=== PATIENT | female | born 1965 | race American Indian/Alaskan Native ===

== ENCOUNTER 2017-04-12 08:17 | Emergency (ER) | payer MEDICAID ==
[2017-04-12 08:37] VITALS: BP 154/90
[2017-04-12] MEDS ORDERED: MORPHINE IM ONE (13:20)
[2017-04-12] MEDS ORDERED: ZOFRAN ODT PO ONE (13:20)
[2017-04-12 13:59] LABS: Basophils % (Auto) 0.8 % (0.0-1.8); Eosinophils % (Auto) 1.3 % (0.0-4.3); Hematocrit 41.7 % (30.3-42.9); Hemoglobin 13.1 gm/dl (10.1-14.3); Mean Corpuscular HGB Conc 31 % (30-34); Mean Corpuscular Hemoglobin 27 pg (28-32); Mean Corpuscular Volume 85 fl (79-97); Platelet Count 200 K/mm3 (140-440); Red Blood Count 4.93 M/mm3 (3.65-5.03); Red Cell Distribution Width 16.9 % (13.2-15.2); White Blood Count 7.2 K/mm3 (4.5-11.0)
[2017-04-12 14:06] LABS: INR 0.98 (0.87-1.13)
[2017-04-12 14:07] LABS: Partial Thromboplastin Time 42.8 Sec. (24.2-36.6)
[2017-04-12 14:21] LABS: Alanine Aminotransferase 18 units/L (7-56); Albumin 3.9 g/dL (3.9-5); Albumin/Globulin Ratio 1.3 %; Alkaline Phosphatase 134 units/L (35-129); Anion Gap 17 mmol/L; BUN/Creatinine Ratio 7.77; Blood Urea Nitrogen 7 mg/dL (7-17); Calcium 9.3 mg/dL (8.4-10.2); Carbon Dioxide 29 mmol/L (22-30); Chloride 100.2 mmol/L (98-107); Glucose 94 mg/dL (65-100); Sodium 142 mmol/L (137-145); Total Protein 6.8 g/dL (6.3-8.2)
--- NOTE | 2017-04-12 14:47 | Cat Scan Report ---
CRANIAL CT SCAN: History: Headache, nausea, and vomiting. Serial contiguous axial images were obtained through the cranium. Intravenous contrast material was not administered. The ventricles are normal in size and appearance. There is no mass effect or midline shift. No areas of abnormally increased or decreased attenuation are seen. No mass lesion is seen. The mastoid air cells and visualized portions of the sinuses are normal. IMPRESSION: Cranial CT scan within normal limits.
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
--- NOTE | 2017-04-12 15:32 | XRay Report ---
THORACIC SPINE: History: Back pain The bones are normally mineralized with well preserved vertebral height, alignment and interspace distances. No paraspinal soft tissue widening is noted. IMPRESSION: Normal study.
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
--- NOTE | 2017-04-12 15:39 | XRay Report ---
RIGHT ANKLE, 3 views: History: Pain and swelling. There is been previous fusion of the tibiotalar joint and hindfoot. Please correlate with history. 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 No displaced fracture or bony destruction is identified. IMPRESSION: Chronic findings as described. No acute injury is appreciated.
[2017-04-12 15:59] LABS: Bilirubin,Urine NEG (Negative)
[2017-04-12 16:00] LABS: Blood,Urine SM (Negative); Ketones,Urine NEG (Negative); Leukocyte Esterase,Urine LG (Negative); Mucus,Urine FEW /HPF; Nitrite,Urine NEG (Negative); Protein,Urine <15 mg/dL mg/dL (Negative); Urobilinogen,Urine < 2.0 mg/dL (<2.0)
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
[2017-04-12] MEDS ORDERED: NORCO 5/325 PO ONE (16:19)
== END 2017-04-12 16:57 | disposition home or self-care (01) ==
LOC: ED 08:17
DX: S16.1XXA Strain of muscle, fascia and tendon at neck level, initial encounter (principal); G44.319 Acute post-traumatic headache, not intractable; M25.571 Pain in right ankle and joints of right foot; N39.0 Urinary tract infection, site not specified; I10 Essential (primary) hypertension; J45.909 Unspecified asthma, uncomplicated; Z86.718 Personal history of other venous thrombosis and embolism; Z79.01 Long term (current) use of anticoagulants; K21.9 Gastro-esophageal reflux disease without esophagitis; Z90.49 Acquired absence of other specified parts of digestive tract; F17.210 Nicotine dependence, cigarettes, uncomplicated; M54.6 Pain in thoracic spine; V43.52XA Car driver injured in collision with other type car in traffic accident, initial encounter; Y93.89 Activity, other specified; Y92.410 Unspecified street and highway as the place of occurrence of the external cause; Y99.8 Other external cause status; R11.11 Vomiting without nausea
CPT/HCPCS: 36415; 70450; 72070; 72125; 73610; 74176; 80053; 81001; 85025; 85610; 85730; 96372; 99284; J2270; Q0162

== ENCOUNTER 2017-04-27 06:27 | Day surgery (SDC) | payer MEDICAID ==
[2017-04-27] MEDS ORDERED: DIPRIVAN 10 MG/ML IV ONE ×3 (07:07)
[2017-04-27] MEDS ORDERED: WATER FOR IRRIG STERILE IR ONE (07:10)
[2017-04-27] MEDS ORDERED: WATER FOR IRRIG STERILE ONE (07:11)
--- NOTE | 2017-04-27 07:50 | Anesthesia Consultation ---
Anesthesia Consult and Med Hx Date of service: 04/27/17 - Airway Anesthetic Teeth Evaluation: Poor ROM Head & Neck: Adequate Mental/Hyoid Distance: Adequate Mallampati Class: Class IV Intubation Access Assessment: Possibly Difficult - Pulmonary Exam CTA: Yes - Cardiac Exam Cardiac Exam: RRR - Pre-Operative Health Status ASA Pre-Surgery Classification: ASA3 Proposed Anesthetic Plan: General - Pulmonary Hx Smoking: Yes Hx Asthma: Yes SOB: Yes (w/ exertion; < 4 METS) Hx Sleep Apnea: Yes - Cardiovascular System Hx Hypertension: Yes Hx Coronary Artery Disease: No Hx Heart Attack/AMI: No Hx Peripheral Vascular Disease: No - Central Nervous System Hx Seizures: No CVA: No Hx Psychiatric Problems: Yes (Anxiety/ Depression) - Gastrointestinal Hx Gastroesophageal Reflux Disease: Yes (Mild) - Endocrine Hx Renal Disease: No Hx Insulin Dependent Diabetes: No Hx Non-Insulin Dependent Diabetes: No Hx Thyroid Disease: No - Hematic Hx Anemia: Yes (blood transfusion 8 years ago) - Other Systems Hx Alcohol Use: No Hx Substance Use: No Hx Cancer: No Hx Obesity: Yes (BMI=37) - Additional Comments Anesthesia Medical History Comments: Denies previous anesthesia complications. Dentition is exceptionally poor, but no loose teeth.
--- NOTE | 2017-04-27 07:51 | Anesthesia Day of Surgery ---
Anesthesia Day of Surgery - Day of Surgery Patient Examined: Yes Patient H&P Reviewed: Yes Patient is NPO: Yes
[2017-04-27] MEDS ORDERED: NACL 0.9% 1000 ML 1,000 ML IV SCH (08:00)
--- NOTE | 2017-04-27 08:52 | Post Operative Note ---
Pre-op diagnosis: dyspepsia, screening colonoscopy Post-op diagnosis: other (gastritis; poor prep in colon) Findings: EGD: mild gastritis, otherwise no significant findings. Bx's obtained to r/o HP. Colonoscopy: poor prep, procedure aborted Procedure: EGD with biopsies, colonoscopy Anesthesia: MAC Surgeon: ONUR MEJIA Estimated blood loss: minimal Pathology: list (Jar A - random gastric biopsies) Specimen disposition: to lab Condition: stable Disposition: same day
[2017-04-27 09:30] VITALS: BP 110/59
--- NOTE | 2017-04-27 10:13 | Operative Report ---
PROCEDURE: EGD. PREOPERATIVE DIAGNOSES: Dyspepsia, bloating. POSTOPERATIVE DIAGNOSIS: Mild gastritis, otherwise no significant findings. COMPLICATIONS: No immediate complications. ANESTHESIA: Monitored anesthesia care. ESTIMATED BLOOD LOSS: Minimal. DESCRIPTION OF PROCEDURE: After consent was obtained, the patient was placed in left lateral decubitus position. Standard upper Fujinon scope was advanced with direct vision through the mouth into the second portion of the duodenum without difficulty. The patient tolerated the procedure well. The views of mucosa were fair. The patient's vital signs were monitored throughout the procedure. FINDINGS: 1. The Z line was irregular at 40 cm from the incisors, otherwise the esophagus appeared normal. 2. There is mild erythematous mucosa in the gastric body and antrum suggestive of gastritis. Random gastric biopsies were obtained to rule out H. pylori. 3. Duodenum appeared normal. IMPRESSION: 1. Gastritis. Random gastric biopsies were obtained. 2. Otherwise, no significant findings on esophagogastroduodenoscopy. RECOMMENDATIONS: 1. Followup pathology. 2. Avoid NSAIDs. 3. Continue PPI daily. 4. Proceed with colonoscopy. [facility]# [id number] VIDAL/NTS
--- NOTE | 2017-04-27 10:15 | Operative Report ---
PROCEDURE: Colonoscopy. PREOPERATIVE DIAGNOSIS: Screening colonoscopy. POSTOPERATIVE DIAGNOSIS: Poor prep, procedure aborted at suspected transverse colon. COMPLICATIONS: No immediate complications. ANESTHESIA: Monitored anesthesia care. ESTIMATED BLOOD LOSS: None. PROCEDURE: After consent was obtained, the patient was placed in left lateral decubitus position. The Fujinon colonoscope was advanced with direct vision through the anus and advanced to the transverse colon. Procedure was aborted due to poor quality of prep and inadequate visualization of the mucosa. The patient tolerated the procedure well. The quality of the prep was poor. FINDINGS: Semi-solid stool throughout the visualized portion of the colon. The procedure was aborted at likely the transverse colon. IMPRESSION: Poor prep, unable to complete colonoscopy. RECOMMENDATIONS: 1. Reschedule colonoscopy with 2-day prep. 2. Follow up in GI Clinic as previously scheduled. 3. We will need repeat colonoscopy within 6 months. [facility]# [id number] VIDAL/NTS
== END 2017-04-27 06:28 | disposition home or self-care (01) ==
LOC: GIO 06:27
PROVIDERS: ATTEND Internal Medicine Gastroenterology
DX: Z12.11 Encounter for screening for malignant neoplasm of colon (principal); K29.50 Unspecified chronic gastritis without bleeding; K22.8 Other specified diseases of esophagus; J45.909 Unspecified asthma, uncomplicated; K21.9 Gastro-esophageal reflux disease without esophagitis; D64.9 Anemia, unspecified; I10 Essential (primary) hypertension; G43.909 Migraine, unspecified, not intractable, without status migrainosus; F41.9 Anxiety disorder, unspecified; F32.9 Major depressive disorder, single episode, unspecified; E66.9 Obesity, unspecified; Z68.37 Body mass index [BMI] 37.0-37.9, adult; Z87.891 Personal history of nicotine dependence; Z98.890 Other specified postprocedural states; Z96.60 Presence of unspecified orthopedic joint implant; Z88.0 Allergy status to penicillin; Z91.041 Radiographic dye allergy status; Z83.79 Family history of other diseases of the digestive system; Z82.49 Family history of ischemic heart disease and other diseases of the circulatory system
CPT/HCPCS: 43239; 45378; 88305; 88342; J2704; J7030

== ENCOUNTER 2017-06-09 08:08 | Day surgery (SDC) | payer MEDICAID ==
[~2017-06-09 08:08] MED LIST: ANCEF/STERILE WATER 2 GM/20 ML IV NR; DECADRON ONE; DIPRIVAN 10 MG/ML IV ONE; MORPHINE IV PRN; NACL 0.9% 1000 ML 1,000 ML IV SCH; PEPCID PO NR; PERCOCET 5/325 PO PRN; SUBLIMAZE ONE; VERSED IV NR; XYLOCAINE MPF 2% ONE; ZOFRAN IV PRN; ZOFRAN ONE
--- NOTE | 2017-06-09 08:56 | Anesthesia Consultation ---
Anesthesia Consult and Med Hx Date of service: 06/09/17 - Airway Anesthetic Teeth Evaluation: Good, Poor (loose bottom front right tooth), Chipped (bottom front tooth) ROM Head & Neck: Adequate Mental/Hyoid Distance: Adequate Mallampati Class: Class II Intubation Access Assessment: Probably Good - Pulmonary Exam CTA: Yes - Cardiac Exam Cardiac Exam: RRR - Pre-Operative Health Status ASA Pre-Surgery Classification: ASA3 Proposed Anesthetic Plan: General - Pulmonary Hx Smoking: Yes (CIGS, 1 PACK Q 2 WEEKS, last cig yesterday) Hx Asthma: Yes Hx Sleep Apnea: Yes (DX SLEEP APNEA WITH CPAP USE) - Cardiovascular System Hx Hypertension: Yes (DIAGNOSED 4 YEARS AGO) Hx Coronary Artery Disease: No Hx Heart Attack/AMI: No Hx Peripheral Vascular Disease: No - Central Nervous System Hx Seizures: Yes (when sleep? not on meds) CVA: No Hx Back Pain: Yes Hx Psychiatric Problems: Yes (Anxiety/ Depression) - Gastrointestinal Hx Gastroesophageal Reflux Disease: Yes (Mild) - Endocrine Hx Renal Disease: No Hx Insulin Dependent Diabetes: No Hx Non-Insulin Dependent Diabetes: No Hx Thyroid Disease: No - Hematic Hx Anemia: No (blood transfusion 8 years ago) - Other Systems Hx Alcohol Use: No Hx Substance Use: No Hx Cancer: No Hx Obesity: Yes (BMI=34)
--- NOTE | 2017-06-09 08:56 | Anesthesia Day of Surgery ---
Anesthesia Day of Surgery - Day of Surgery Patient Examined: Yes Patient H&P Reviewed: Yes Patient is NPO: Yes
[2017-06-09] MEDS ORDERED: FLAGYL 500 MG/100 ML 500 MG/100 ML BAG IV NR (09:03)
--- NOTE | 2017-06-09 09:06 | XRay Report ---
Single view abdomen: History: Preop left renal stone. Findings: There is confluent density noted overlying the left kidney probably a single or multiple adjacent calculi. No bowel distention. Stool in colon. Impression: Single calculus or multiple adjacent calculi overlying the left kidney.
[2017-06-09] MEDS ORDERED: PROAIR IH ONE (09:52)
--- NOTE | 2017-06-09 10:05 | Short Stay Summary ---
Short Stay Documentation Date of service: 06/09/17 - History H&P: obtained from office - Allergies and Medications Current Medications: Allergies Penicillins Allergy (Severe, Verified 06/03/17 14:36) Anaphylaxis Iodinated Contrast Media - IV Dye Adverse Reaction (Verified 01/25/16 10:57) Swelling "I SWOLE UP LIKE A BALLOON" Home Medications Medication Instructions Recorded Confirmed Last Taken Type Beclomethasone Dipropionate [Qvar 80 mg INHALATION DAILY 07/07/15 06/03/1704/26 History 80MCG] Verapamil HCl [Verapamil ER] 240 mg PO DAILY 07/07/15 06/03/17 04/27/17 History Albuterol Sulfate [Proventil HFA] 2 puff INHALATION QID 01/09/16 06/03/17 History Lisinopril/Hydrochlorothiazide 1 tab PO DAILY 01/09/16 06/03/17 10/26/16 History [Lisinopril-Hctz 20-25 mg Tab] Ranitidine HCl [Zantac 150 MG TAB] 150 mg PO DAILY 10/26/16 06/03/17 10/26/16 History Acetaminophen/Codeine [Tylenol #3] 1 tab PO Q6H PRN #12 tab 04/12/17 06/03/17 Rx Ibuprofen [Motrin] 600 mg PO Q8H PRN #15 tablet 04/12/17 06/03/17 Unknown Rx methOCARBAMOL [Robaxin TAB] 500 mg PO Q6H PRN #15 tablet 04/12/17 06/03/1704/06 Rx Active Medications Cefazolin Sodium (Ancef/Sterile Water 2 Gm/20 Ml) 2 gm IV PREOP NR Stop: 06/09/17 23:00 Famotidine (Pepcid) 20 mg PO PREOP NR Stop: 06/09/17 21:00 Last Admin: 06/09/17 08:59 Dose: 20 mg Sodium Chloride (Nacl 0.9% 1000 Ml) 1,000 mls @ 75 mls/hr IV DIRECT CHIQUITA Last Admin: 06/09/17 08:59 Dose: 75 mls/hr Midazolam HCl (Versed) 2 mg IV PREOP NR Stop: 06/09/17 23:59 Last Admin: 06/09/17 08:59 Dose: 2 mg Morphine Sulfate (Morphine) 2 mg IV Q10MIN PRN PRN Reason: Pain, Moderate (4-6) Stop: 06/12/17 07:26 - Brief post op/procedure progress note Date of procedure: 06/09/17 Pre-op diagnosis: left renal stones Post-op diagnosis: same Procedure: ESWL - staged Anesthesia: GETA Surgeon: ALBERTINA BARNETT Estimated blood loss: none Pathology: none Condition: stable - Hospital course Hospital course: norco & post op info on chart - Disposition Condition at discharge: Stable Disposition: DC-01 TO HOME OR SELFCARE Short Stay Discharge Plan Follow up with: AL BERRY MD [Primary Care Provider] - 7 Days
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
[2017-06-09] MEDS ORDERED: PROVENTIL IH ONE (10:29)
[2017-06-09] MEDS ORDERED: NACL 0.9% NEBU ONE (10:30)
[2017-06-09] MEDS ORDERED: NEO SYNEPHRINE/NS Syringe(OR USE) IV ONE (10:30)
[2017-06-09] MEDS ORDERED: PROVENTIL IH PRN (10:33)
--- NOTE | 2017-06-09 13:00 | Post Anesthesia Evaluation ---
- Post Anesthesia Evaluation Patient Participated: Yes Airway Patent: Yes Stable Respiratory Function: Yes Nausea/Vomiting: No Temp > 96.8F: Yes Pain Manageable: Yes Adequeate Hydration: Yes Anesthesia Complications: No Block Receding Appropriately: Not Applicable Patient on Ventilator: No
[2017-06-09 15:19] VITALS: BP 112/71
== END 2017-06-09 13:45 | disposition home or self-care (01) ==
LOC: OR 08:08
PROVIDERS: ATTEND Urology
DX: N20.0 Calculus of kidney (principal); I10 Essential (primary) hypertension; G47.30 Sleep apnea, unspecified; J45.909 Unspecified asthma, uncomplicated; F17.210 Nicotine dependence, cigarettes, uncomplicated; K21.9 Gastro-esophageal reflux disease without esophagitis; E66.9 Obesity, unspecified; Z68.34 Body mass index [BMI] 34.0-34.9, adult; Z88.0 Allergy status to penicillin; Z91.041 Radiographic dye allergy status; Z79.899 Other long term (current) drug therapy
CPT/HCPCS: 36415; 50590; 74000; 84132; J1100; J2250; J2370; J2405; J2704; J3010; J7030

== ENCOUNTER 2018-02-09 08:52 | Day surgery (SDC) | payer MEDICAID ==
[2018-02-09 09:47] VITALS: BP 118/69
[2018-02-09] MEDS ORDERED: NACL 0.9% 1000 ML 1,000 ML IV SCH (10:00)
[2018-02-09] MEDS ORDERED: DIPRIVAN 10 MG/ML IV ONE (11:43)
[2018-02-09] MEDS ORDERED: KETALAR ONE (11:44)
[2018-02-09] MEDS ORDERED: WATER FOR IRRIG STERILE IR ONE (11:45)
--- NOTE | 2018-02-09 15:13 | Operative Report ---
Operative Report Operative Report: Attending physician: Jerardo Shah MD Lens Cementer: Jerardo Shah MD Indication: Patient is a 52 -year-old female who presented with a history of recurrent epigastric pain, heartburn, dysphagia and indigestion. An upper endoscopy is done to assess patient, so that treatment may be directed based on the findings. Consent: Informed consent was obtained after advising the patient and family regarding nature of this procedure, its indications, potential benefits as well as possible complications including but not limited to bleeding perforation and adverse reaction to medication, infection as well as other cardiopulmonary complications. An informed written and verbal consent was then obtained after due opportunity was provided for questions and answers. Monitoring: Patient was monitored continuously with pulse oximetry and electrocardiographic recordings as well as blood pressure recordings. Vital signs remained stable throughout this procedure with no untoward events. Preoperative assessment: Patient was assessed immediately prior to this procedure for capacity to tolerate monitored anesthesia care and moderate sedation as well as general anesthesia. Patient's ASA classification is 3, Mallampati class is 2, Hyomental distance is 3. Instrument: Striben video endoscope Medications: Ketamine given intravenously in divided doses. For details please refer to anesthesia records. Description of procedure: Patient was placed in the left lateral decubitus position after achieving sedation, the endoscope was introduced into the esophagus under direct vision. It was then advanced beyond the esophagus into the stomach and then beyond the stomach into the duodenum and to the second portion of the duodenum. It was subsequently withdrawn with careful inspection of all mucosal surfaces with the following findings. Findings: Patient has an irregular Z line at 38 cm. There was a small diminutive sliding hiatal hernia seen on entry into the stomach. There was erythema and erosions seen in the gastric antrum. There was copious bile seen in the stomach. Biopsies of the antrum were obtained for histopathology. The duodenum was normal to second portion. Impression: Irregular Z line. Gastric antral erythema Gastric antral erosions Hiatal hernia. Retained bile in the stomach Plan: Continue treatment with proton pump inhibitors. Follow pathology report. Direct additional treatment based on the pathology report. Patient will be observed clinically. Additional recommendations will be made follow-up.
--- NOTE | 2018-02-09 15:14 | Discharge Summary ---
Short Stay Discharge Plan Activity: advance as tolerated Weight Bearing Status: Weight Bear as Tolerated Diet: regular Follow up with: PRIMARY CARE, [Primary Care Provider] - 7 Days
--- NOTE | 2018-02-10 19:23 | Anesthesia Day of Surgery ---
Anesthesia Day of Surgery - Day of Surgery Patient Examined: Yes Patient H&P Reviewed: Yes Patient is NPO: Yes
--- NOTE | 2018-02-10 19:23 | Anesthesia Consultation ---
Anesthesia Consult and Med Hx - Airway Anesthetic Teeth Evaluation: Good ROM Head & Neck: Adequate Mental/Hyoid Distance: Adequate Mallampati Class: Class II Intubation Access Assessment: Good - Pulmonary Exam CTA: Yes - Cardiac Exam Cardiac Exam: RRR - Pre-Operative Health Status ASA Pre-Surgery Classification: ASA2 Proposed Anesthetic Plan: MAC - Pulmonary Hx Smoking: Yes Hx Asthma: Yes SOB: Yes Hx Sleep Apnea: Yes - Cardiovascular System Hx Hypertension: Yes Hx Coronary Artery Disease: No Hx Heart Attack/AMI: No Hx Peripheral Vascular Disease: No - Central Nervous System Hx Seizures: Yes CVA: No Hx Back Pain: Yes Hx Psychiatric Problems: Yes (Anxiety/ Depression) - Gastrointestinal Hx Gastroesophageal Reflux Disease: Yes (Mild) - Endocrine Hx Renal Disease: No Hx Insulin Dependent Diabetes: No Hx Non-Insulin Dependent Diabetes: No Hx Thyroid Disease: No - Hematic Hx Anemia: No (blood transfusion 8 years ago) - Other Systems Hx Alcohol Use: No Hx Substance Use: No Hx Cancer: No Hx Obesity: Yes (BMI=34)
--- NOTE | 2018-02-10 19:24 | Post Anesthesia Evaluation ---
- Post Anesthesia Evaluation Patient Participated: Yes Airway Patent: Yes Stable Respiratory Function: Yes Nausea/Vomiting: No Temp > 96.8F: Yes Pain Manageable: Yes Adequeate Hydration: Yes Anesthesia Complications: No Block Receding Appropriately: Not Applicable
== END 2018-02-09 08:53 | disposition home or self-care (01) ==
LOC: GIO 08:52
PROVIDERS: ATTEND Internal Medicine Gastroenterology
DX: K44.9 Diaphragmatic hernia without obstruction or gangrene (principal)
CPT/HCPCS: 43239; 88305; 88342; J2704; J7030

== ENCOUNTER 2018-02-13 09:37 | Day surgery (SDC) | payer MEDICAID ==
[2018-02-13] MEDS ORDERED: NACL 0.9% 1000 ML 1,000 ML IV SCH (11:00)
[2018-02-13] MEDS ORDERED: DIPRIVAN 10 MG/ML IV ONE ×2 (14:25)
[2018-02-13] MEDS ORDERED: WATER FOR IRRIG STERILE ONE (14:44)
--- NOTE | 2018-02-13 14:56 | Operative Report ---
Operative Report Operative Report: Date of procedure: 01/30/2018 Procedure: Colonoscopy to the cecum . Attending physician: Jerardo Shah MD Electric Pile Driver Operator: Jerardo Shah MD Indication: Patient is a 52-year-old female who presents for colonoscopy because of recurrent rectal bleeding and change in bowel habits and abdominal pain . A colonoscopy is now to evaluate patient so that treatment may be directed based on the findings. Consent: Informed consent was obtained after advising the patient and family regarding nature of this procedure, its indications, potential benefits as well as possible complications including but not limited to bleeding perforation and adverse reaction to medication, infection as well as other cardiopulmonary complications. An informed written and verbal consent was then obtained after due opportunity was provided for questions and answers. Monitoring: Patient was monitored continuously with pulse oximetry and electrocardiographic recordings as well as blood pressure recordings. Vital signs remained stable throughout this procedure with no untoward events. Preoperative assessment: Patient was assessed immediately prior to this procedure for capacity to tolerate monitored anesthesia care and moderate sedation as well as general anesthesia. Patient's ASA classification is 3, Mallampati class is 2, Hyomental distance is 3. Instrument: SCOUPY video colonoscope Medications: Propofol given intravenously in divided doses. For details please refer to anesthesia records. Description of procedure: Patient was placed in the left lateral decubitus position after achieving sedation, a digital rectal examination was performed following which the colonoscope was introduced into the anal verge and advanced to the cecum which was identified by the ileocecal valve, the appendiceal orifice, as well as by the cecal strap and direct transillumination. The colonoscope was subsequently withdrawn with careful inspection of all mucosal surfaces. Patient tolerated this procedure well and was subsequently taken to the recovery room. The following findings were noted. Findings: The colonoscopic preparation was poor. There was poor visualization of the cecum ascending colon transverse colon descending colon and sigmoid colon. Patient had incremental stool density particularly in the ascending colon and cecum. On the retroflex view at the anal verge, patient had internal hemorrhoids . Impression: Poor colonoscopic preparation. There was however no gross abnormalities seen.. Internal hemorrhoids. Plan: Reschedule full colonoscopy with improved preparative regimen
--- NOTE | 2018-02-13 14:57 | Discharge Summary ---
Short Stay Discharge Plan Activity: advance as tolerated Weight Bearing Status: Weight Bear as Tolerated Diet: regular Follow up with: BEBO LEACH MD [Primary Care Provider] - 7 Days
--- NOTE | 2018-02-13 15:04 | Anesthesia Consultation ---
Anesthesia Consult and Med Hx Date of service: 02/13/18 - Airway Anesthetic Teeth Evaluation: Poor ROM Head & Neck: Adequate Mental/Hyoid Distance: Inadequate Mallampati Class: Class II Intubation Access Assessment: Probably Good - Pulmonary Exam CTA: Yes - Cardiac Exam Cardiac Exam: RRR - Pre-Operative Health Status ASA Pre-Surgery Classification: ASA3 Proposed Anesthetic Plan: MAC - Pulmonary Hx Smoking: Yes Hx Asthma: Yes SOB: Yes COPD: Yes Hx Sleep Apnea: Yes - Cardiovascular System Hx Hypertension: Yes Hx Coronary Artery Disease: No Hx Heart Attack/AMI: No Hx Peripheral Vascular Disease: No - Central Nervous System Hx Seizures: Yes CVA: No Hx Back Pain: Yes Hx Psychiatric Problems: Yes (Anxiety/ Depression) - Gastrointestinal Hx Gastroesophageal Reflux Disease: Yes (Mild) - Endocrine Hx Renal Disease: No Hx Insulin Dependent Diabetes: No Hx Non-Insulin Dependent Diabetes: No Hx Thyroid Disease: No - Hematic Hx Anemia: No (blood transfusion 8 years ago) - Other Systems Hx Alcohol Use: No Hx Substance Use: No Hx Cancer: No Hx Obesity: Yes (BMI=34)
--- NOTE | 2018-02-13 15:05 | Anesthesia Day of Surgery ---
Anesthesia Day of Surgery - Day of Surgery Patient Examined: Yes Patient H&P Reviewed: Yes Patient is NPO: Yes
--- NOTE | 2018-02-13 15:05 | Post Anesthesia Evaluation ---
- Post Anesthesia Evaluation Patient Participated: Yes Airway Patent: Yes Stable Respiratory Function: Yes Nausea/Vomiting: No Temp > 96.8F: Yes Pain Manageable: Yes Adequeate Hydration: Yes Anesthesia Complications: No
[2018-02-13 15:22] VITALS: BP 128/75
== END 2018-02-13 09:38 | disposition home or self-care (01) ==
LOC: GIO 09:37
PROVIDERS: ATTEND Internal Medicine Gastroenterology
DX: K21.9 Gastro-esophageal reflux disease without esophagitis (principal); I10 Essential (primary) hypertension; J44.9 Chronic obstructive pulmonary disease, unspecified; G47.30 Sleep apnea, unspecified; E66.9 Obesity, unspecified; F41.9 Anxiety disorder, unspecified; F32.9 Major depressive disorder, single episode, unspecified; F17.200 Nicotine dependence, unspecified, uncomplicated; Z68.34 Body mass index [BMI] 34.0-34.9, adult; Z88.0 Allergy status to penicillin; Z91.048 Other nonmedicinal substance allergy status
CPT/HCPCS: 45378; J2704; J7030

== ENCOUNTER 2019-05-08 10:12 | Emergency (ER) | payer MEDICARE ==
[2019-05-08 10:23] VITALS: BP 120/73
[2019-05-08] MEDS ORDERED: ULTRAM PO ONE (11:13)
[2019-05-08] MEDS ORDERED: IBUPROFEN PO ONE (11:13)
--- NOTE | 2019-05-08 13:26 | Vascular Lab Report ---
PROCEDURE: VL VENOUS DUPLEX LE BILAT TECHNIQUE: Grayscale, color flow and spectral waveform images were obtained of bilateral lower extre mities. HISTORY: leg swelling x 2 weeks with pain COMPARISON: None FINDINGS: There is no deep venous thrombosis seen in the left or right lower extremity. Flow is demonstrated by color flow and spectral waveform imaging. There is appropriate wall compression and augmentation. Right peroneal vein is not visualized. IMPRESSION: There is no evidence for DVT in either right or left lower extremity. This document is electronically signed by Donna Campos MD., May 08 2019 01:24:48 PM ET
--- NOTE | 2019-05-08 14:14 | Emergency Department Report ---
ED General Adult HPI - General Chief complaint: Extremity Problem,Nontraumatic Stated complaint: FOOT PAIN Time Seen by Provider: 05/08/19 10:48 Source: patient Mode of arrival: Ambulatory Limitations: No Limitations - History of Present Illness Initial comments: Patient is a 53-year-old female who is complaining of bilateral leg pain for the past 2 weeks. Patient states that she has noted some lower extremity swelling. Patient states that it's there's been no injury or direct trauma. She denies any shortness of breath decreased urination. Patient denies any recent long travel. Patient has a history of COPD DVT GERD hypertension. Patient states that the pain is a tight sensation is 5 out 10 in severity. Severity scale (0 -10): 10 - Related Data Home Medications Medication Instructions Recorded Confirmed Last Taken Beclomethasone Dipropionate [Qvar 80 mg INHALATION DAILY 07/07/15 09/25/18 02/12/18 80MCG] Verapamil HCl [Verapamil ER] 240 mg PO DAILY 07/07/15 09/25/18 02/13/18 Albuterol Sulfate [Proventil HFA] 2 puff INHALATION QID 01/09/16 09/25/18 02/12/18 Lisinopril/Hydrochlorothiazide 1 tab PO DAILY 01/09/16 09/25/18 02/13/18 [Lisinopril-Hctz 20-25 mg Tab] Ranitidine HCl [Zantac] 150 mg PO DAILY 10/26/16 09/25/18 02/12/18 Albuterol Sulfate [Albuterol 0.63% 0.63 mg IH TID PRN 09/25/18 09/25/18 Unknown NEBS] Aspirin [Aspir-Low] 81 mg PO DAILY 09/25/18 09/25/18 Unknown Previous Rx's Medication Instructions Recorded Last Taken Type HYDROcodone/APAP 5-325 [Dolph 1 each PO Q6HR PRN #15 tablet 10/18/18 Unknown Rx 5/325] Ibuprofen [Motrin] 800 mg PO Q8HR PRN #30 tablet 10/18/18 Unknown Rx levETIRAcetam [Keppra TAB] 500 mg PO BID #60 tablet 10/18/18 Unknown Rx Furosemide [Lasix] 20 mg PO QDAY #7 tablet 05/08/19 Unknown Rx traMADol [Ultram] 50 mg PO Q6HR PRN #12 tablet 05/08/19 Unknown Rx Allergies Allergy/AdvReac Type Severity Reaction Status Date / Time Penicillins Allergy Severe Anaphylaxis Verified 05/08/19 10:14 Iodinated Contrast- Oral and AdvReac Swelling Verified 05/08/19 10:14 IV Dye [Iodinated Contrast Media - IV Dye] ED Review of Systems ROS: Stated complaint: FOOT PAIN Other details as noted in HPI Comment: All other systems reviewed and negative ED Past Medical Hx - Past Medical History Previous Medical History?: Yes Hx Hypertension: Yes (X 7 YRS) Hx Heart Attack/AMI: No Hx Deep Vein Thrombosis: Yes Hx GERD: Yes Hx Renal Disease: No Hx Arthritis: Yes Hx Headaches / Migraines: Yes (MIGRAINES) Hx Seizures: Yes (LAST SEIZURE 2 MONTHS AGO- NEVER BEEN ON MEDS) Hx Kidney Stones: Yes Hx Asthma: Yes (DAILY INHALERS) Hx COPD: Yes Hx HIV: No - Surgical History Past Surgical History?: Yes Hx Cholecystectomy: Yes Additional Surgical History: MULT SURG RIGHT LEG. . STENT LEFT KIDNEY - Social History Smoking Status: Never Smoker - Medications Home Medications: Home Medications Medication Instructions Recorded Confirmed Last Taken Type Beclomethasone Dipropionate [Qvar 80 mg INHALATION DAILY 07/07/15 09/25/18 02/12/18 History 80MCG] Verapamil HCl [Verapamil ER] 240 mg PO DAILY 07/07/15 09/25/18 02/13/18 History Albuterol Sulfate [Proventil HFA] 2 puff INHALATION QID 01/09/16 09/25/18 02/12/18 History Lisinopril/Hydrochlorothiazide 1 tab PO DAILY 01/09/16 09/25/18 02/13/18 History [Lisinopril-Hctz 20-25 mg Tab] Ranitidine HCl [Zantac] 150 mg PO DAILY 10/26/16 09/25/18 02/12/18 History Albuterol Sulfate [Albuterol 0.63% 0.63 mg IH TID PRN 09/25/18 09/25/18 Unknown History NEBS] Aspirin [Aspir-Low] 81 mg PO DAILY 09/25/18 09/25/18 Unknown History HYDROcodone/APAP 5-325 [Dolph 1 each PO Q6HR PRN #15 tablet 10/18/18 Unknown Rx 5/325] Ibuprofen [Motrin] 800 mg PO Q8HR PRN #30 tablet 10/18/18 Unknown Rx levETIRAcetam [Keppra TAB] 500 mg PO BID #60 tablet 10/18/18 Unknown Rx Furosemide [Lasix] 20 mg PO QDAY #7 tablet 05/08/19 Unknown Rx traMADol [Ultram] 50 mg PO Q6HR PRN #12 tablet 05/08/19 Unknown Rx ED Physical Exam - General Limitations: No Limitations General appearance: alert, in no apparent distress - Head Head exam: Present: atraumatic, normocephalic - Eye Eye exam: Present: normal appearance - ENT ENT exam: Present: mucous membranes moist - Neck Neck exam: Present: normal inspection - Respiratory Respiratory exam: Present: normal lung sounds bilaterally. Absent: respiratory distress, wheezes, rales, rhonchi - Cardiovascular Cardiovascular Exam: Present: regular rate, normal rhythm. Absent: systolic murmur, diastolic murmur, rubs, gallop - GI/Abdominal GI/Abdominal exam: Present: soft, normal bowel sounds. Absent: distended, te nderness, guarding, rebound - Extremities Exam Extremities exam: Present: normal inspection - Back Exam Back exam: Present: normal inspection - Neurological Exam Neurological exam: Present: alert, oriented X3 - Psychiatric Psychiatric exam: Present: normal affect, normal mood - Skin Skin exam: Present: warm, dry, intact, normal color. Absent: rash - Other Other exam information: Patient with 1+ edema to the mid calf. There is some pitting associated with the edema ED Course Vital Signs 05/08/19 10:23 Temperature 97.9 F Pulse Rate 73 Respiratory 18 Rate Blood Pressure 120/73 O2 Sat by Pulse 98 Oximetry ED Medical Decision Making - Radiology Data Ultrasound of bilateral lower extremity shows no acute DVT - Medical Decision Making Patient likely with some dependent edema secondary to her age. Patient referred to vascular surgery. Patient started on Lasix. Critical care attestation.: If time is entered above; I have spent that time in minutes in the direct care of this critically ill patient, excluding procedure time. ED Disposition Clinical Impression: Dependent edema Disposition: DC-01 TO HOME OR SELFCARE Is pt being admited?: No Does the pt Need Aspirin: No Condition: Stable Instructions: Leg Edema (ED) Referrals: SUZY WINCHESTER MD [Primary Care Provider] - 3-5 Days Time of Disposition: 14:14
== END 2019-05-08 14:19 | disposition home or self-care (01) ==
LOC: ED 10:12
DX: R60.0 Localized edema (principal); I10 Essential (primary) hypertension; K21.9 Gastro-esophageal reflux disease without esophagitis; M19.90 Unspecified osteoarthritis, unspecified site; G43.909 Migraine, unspecified, not intractable, without status migrainosus; J44.9 Chronic obstructive pulmonary disease, unspecified; Z79.899 Other long term (current) drug therapy; Z86.718 Personal history of other venous thrombosis and embolism; Z79.01 Long term (current) use of anticoagulants; Z90.49 Acquired absence of other specified parts of digestive tract; Z88.8 Allergy status to other drugs, medicaments and biological substances; Z91.041 Radiographic dye allergy status
CPT/HCPCS: 93970; 99283

== ENCOUNTER 2019-05-23 14:29 | Emergency (ER) | payer MEDICARE ==
[2019-05-23] MEDS ORDERED: TYLENOL #3 PO ONE (17:26)
[2019-05-23 18:25] VITALS: BP 126/77
--- NOTE | 2019-05-23 18:27 | XRay Report ---
PROCEDURE: XR ANKLE 3+V LT TECHNIQUE: 3 views of the left ankle HISTORY: left ankle paion COMPARISONS: FINDINGS: No fracture identified. No dislocation seen. Joint spaces are within normal limits. IMPRESSION: Negative no acute abnormality. This document is electronically signed by Crescencio Stapleton MD., May 23 2019 06:25:52 PM ET
--- NOTE | 2019-05-23 18:27 | Emergency Department Report ---
ED Lower Extremity HPI - General Chief Complaint: Extremity Problem,Nontraumatic Stated Complaint: LT LEG PAIN Time Seen by Provider: 05/23/19 17:14 Source: patient Mode of arrival: Wheelchair Limitations: No Limitations - History of Present Illness Initial Comments: This is a 53-year-old female nontoxic, well nourished in appearance, no acute signs of distress presents to the ED with c/o of left leg pain 1 day. Patient stated that pain started with ankle and radiates to left leg and calf area. Patient denies any injuries. Patient denies any numbness, tingling, fever, chills, nausea, vomiting, chest pain, shortness of breath, headache, stiff neck. Patient denies any joint swelling or joint redness. Patient denies decreased range of motion. Patient stated has decreased gait due to pain. Patient stated allergies to PCN and Oral Dye. MD Complaint: leg injury -: days(s) (1) Injury: Leg: Left, Ankle: Left Place: home Severity: mild Severity scale (0 -10): 8 Improves With: immobilization Worsens With: weight bearing, movement, palpation Associated Symptoms: swelling, able to partially bear weight, ambulatory. denies: snap/pop sensation, numbness, tingling, unable to bear weight - Related Data Home Medications Medication Instructions Recorded Confirmed Last Taken Beclomethasone Dipropionate [Qvar 80 mg INHALATION DAILY 07/07/15 09/25/18 02/12/18 80MCG] Verapamil HCl [Verapamil ER] 240 mg PO DAILY 07/07/15 09/25/18 02/13/18 Albuterol Sulfate [Proventil HFA] 2 puff INHALATION QID 01/09/16 09/25/18 02/12/18 Lisinopril/Hydrochlorothiazide 1 tab PO DAILY 01/09/16 09/25/18 02/13/18 [Lisinopril-Hctz 20-25 mg Tab] Ranitidine HCl [Zantac] 150 mg PO DAILY 10/26/16 09/25/18 02/12/18 Albuterol Sulfate [Albuterol 0.63% 0.63 mg IH TID PRN 09/25/18 09/25/18 Unknown NEBS] Aspirin [Aspir-Low] 81 mg PO DAILY 09/25/18 09/25/18 Unknown Previous Rx's Medication Instructions Recorded Last Taken Type HYDROcodone/APAP 5-325 [[place] 1 each PO Q6HR PRN #15 tablet 10/18/18 Unknown Rx 5/325] Ibuprofen [Motrin] 800 mg PO Q8HR PRN #30 tablet 10/18/18 Unknown Rx levETIRAcetam [Keppra TAB] 500 mg PO BID #60 tablet 10/18/18 Unknown Rx Furosemide [Lasix] 20 mg PO QDAY #7 tablet 05/08/19 Unknown Rx traMADol [Ultram] 50 mg PO Q6HR PRN #12 tablet 05/08/19 Unknown Rx Acetaminophen/Codeine [Tylenol 1 tab PO Q6H PRN #12 tab 05/23/19 Unknown Rx /Codeine # 3 tab] Ibuprofen [Motrin] 600 mg PO Q8H PRN #20 tablet 05/23/19 Unknown Rx Allergies Allergy/AdvReac Type Severity Reaction Status Date / Time Penicillins Allergy Severe Anaphylaxis Verified 05/08/19 10:14 Iodinated Contrast- Oral and AdvReac Swelling Verified 05/08/19 10:14 IV Dye [Iodinated Contrast Media - IV Dye] ED Review of Systems ROS: Stated complaint: LT LEG PAIN Other details as noted in HPI Constitutional: denies: chills, fever Eyes: denies: eye pain, eye discharge, vision change ENT: denies: ear pain, throat pain Respiratory: denies: cough, shortness of breath, wheezing Cardiovascular: denies: chest pain, palpitations Endocrine: no symptoms reported Gastrointestinal: denies: abdominal pain, nausea, diarrhea Genitourinary: denies: urgency, dysuria, discharge Musculoskeletal: arthralgia. denies: back pain, joint swelling Skin: denies: rash, lesions Neurological: denies: headache, weakness, paresthesias Psychiatric: denies: anxiety, depression Hematological/Lymphatic: denies: easy bleeding, easy bruising ED Past Medical Hx - Past Medical History Previous Medical History?: Yes Hx Hypertension: Yes (X 7 YRS) Hx Heart Attack/AMI: No Hx Deep Vein Thrombosis: Yes Hx GERD: Yes Hx Renal Disease: No Hx Arthritis: Yes Hx Headaches / Migraines: Yes (MIGRAINES) Hx Seizures: Yes (LAST SEIZURE 2 MONTHS AGO- NEVER BEEN ON MEDS) Hx Kidney Stones: Yes Hx Asthma: Yes (DAILY INHALERS) Hx COPD: Yes Hx HIV: No - Surgical History Past Surgical History?: Yes Hx Cholecystectomy: Yes Additional Surgical History: MULT SURG RIGHT LEG. . STENT LEFT KIDNEY - Social History Smoking Status: Never Smoker - Medications Home Medications: Home Medications Medication Instructions Recorded Confirmed Last Taken Type Beclomethasone Dipropionate [Qvar 80 mg INHALATION DAILY 07/07/15 09/25/18 02/12/18 History 80MCG] Verapamil HCl [Verapamil ER] 240 mg PO DAILY 07/07/15 09/25/18 02/13/18 History Albuterol Sulfate [Proventil HFA] 2 puff INHALATION QID 01/09/16 09/25/18 02/12/18 History Lisinopril/Hydrochlorothiazide 1 tab PO DAILY 01/09/16 09/25/18 02/13/18 History [Lisinopril-Hctz 20-25 mg Tab] Ranitidine HCl [Zantac] 150 mg PO DAILY 10/26/16 09/25/18 02/12/18 History Albuterol Sulfate [Albuterol 0.63% 0.63 mg IH TID PRN 09/25/18 09/25/18 Unknown History NEBS] Aspirin [Aspir-Low] 81 mg PO DAILY 09/25/18 09/25/18 Unknown History HYDROcodone/APAP 5-325 [[place] 1 each PO Q6HR PRN #15 tablet 10/18/18 Unknown Rx 5/325] Ibuprofen [Motrin] 800 mg PO Q8HR PRN #30 tablet 10/18/18 Unknown Rx levETIRAcetam [Keppra TAB] 500 mg PO BID #60 tablet 10/18/18 Unknown Rx Furosemide [Lasix] 20 mg PO QDAY #7 tablet 05/08/19 Unknown Rx traMADol [Ultram] 50 mg PO Q6HR PRN #12 tablet 05/08/19 Unknown Rx Acetaminophen/Codeine [Tylenol 1 tab PO Q6H PRN #12 tab 05/23/19 Unknown Rx /Codeine # 3 tab] Ibuprofen [Motrin] 600 mg PO Q8H PRN #20 tablet 05/23/19 Unknown Rx ED Physical Exam - General Limitations: No Limitations General appearance: alert, in no apparent distress - Head Head exam: Present: atraumatic, normocephalic - Neck Neck exam: Present: normal inspection, full ROM. Absent: tenderness, meningismus, lymphadenopathy - Extremities Exam Extremities exam: Present: normal inspection, full ROM, tenderness, normal capillary refill, calf tenderness. Absent: joint swelling - Expanded Lower Extremity Exam Left Hip exam: Present: normal inspection, full ROM. Absent: tenderness, swelling Upper Leg exam: Present: normal inspection, full ROM. Absent: tenderness, swelling Knee exam: Present: normal inspection, full ROM. Absent: tenderness, swelling Lower Leg exam: Present: normal inspection, full ROM, tenderness. Absent: swelling, abrasion, laceration, ecchymosis, deformity, crepidus, dislocation, erythema, palpable cord, Chinmay's sign Ankle exam: Present: normal inspection, full ROM, tenderness, swelling, ecchymosis. Absent: abrasion, laceration, deformity, crepidus, dislocation, erythema, anterior draw sign Foot/Toe exam: Present: normal inspection, full ROM. Absent: tenderness, swelling Neuro vascular tendon exam: Present: no vascular compromise Gait: Positive: observed and limited by pain - Back Exam Back exam: Present: normal inspection, full ROM - Neurological Exam Neurological exam: Present: alert, oriented X3 - Psychiatric Psychiatric exam: Present: normal affect, normal mood - Skin Skin exam: Present: warm, dry, intact, normal color. Absent: rash ED Course Vital Signs 05/23/19 17:05 Temperature 98.5 F Pulse Rate 63 Respiratory 16 Rate Blood Pressure 126/77 [Left] O2 Sat by Pulse 95 Oximetry - Reevaluation(s) Reevaluation #1: 05/23/19 18:25 Patient is speaking in full sentences with no signs of distress noted. ED Lower Extremity MDM - Medical Decision Making This is a 53-year-old female that presents with left ankle sprain and left leg strain. Patient is stable and was examined by me. I referred patient to an orthopedic doctor for further evaluation for possible MRI. X-ray and Doppler US has been obtained and dictated by the radiologist. Patient is notified of the x-ray and US reports with noted by the patient. Patient has no joint swelling. No ecchymosis. no joint redness or swelling. Not warm to touch. No signs of cellulites present. Patient received ankle stirrup and crutches and was educated by RN how to use crutches. Patient was instructed to RICE therapy. Patient received Tylenol #3 for pain and stated that patients son will drive the patient home after discahrge. Patient is discharged with Motrin and Tylenol #3. At time of discharge, the patient does not seem toxic or ill in appearance. No acute signs of distress noted. Patient agrees to discharge treatment plan of c are. No further questions noted by the patient. Critical care attestation.: If time is entered above; I have spent that time in minutes in the direct care of this critically ill patient, excluding procedure time. ED Disposition Clinical Impression: Strain of knee and leg, left, Left ankle strain Disposition: DC- TO HOME OR SELFCARE Is pt being admited?: No Does the pt Need Aspirin: No Condition: Stable Instructions: Ankle Exercises (GEN), RICE Therapy (ED), Acetaminophen/Codeine (By mouth) Additional Instructions: Follow-up with a orthopedic doctor in 3-5 days or if symptoms worsen and continue return to emergency room as soon as possible. Do not operate any machinery while taking Tylenol with codeine as this may cause drowsiness. Prescriptions: Ibuprofen [Motrin] 600 mg PO Q8H PRN #20 tablet PRN Reason: Pain Acetaminophen/Codeine [Tylenol /Codeine # 3 tab] 1 tab PO Q6H PRN #12 tab PRN Reason: Pain , Severe (7-10) Referrals: SARAH DOWLING MD [Primary Care Provider] - 3-5 Days PRIMARY CAREMD [Referring] - 3-5 Days BERNICE GAMBLE MD [Staff Physician] - 3-5 Days [facility] [Outside] - 3-5 Days [facility] [Outside] - 3-5 Days Forms: Work/School Release Form(ED)
--- NOTE | 2019-05-23 20:32 | Vascular Lab Report ---
PROCEDURE: VL VENOUS DUPLEX LE LT TECHNIQUE: Duplex Doppler sonography of the left lower extremity veins. Sadler scale imaging with and without compression, spectral waveform analysis with and without augmentation, and color flow Doppler were employed. HISTORY: left leg pain COMPARISONS: None FINDINGS: Normal compressibility and blood flow. No filling defects. Normal augmentation IMPRESSION: No evidence of deep venous thrombosis This document is electronically signed by Mary Lou Carbajal MD., May 23 2019 08:30:51 PM ET
== END 2019-05-23 21:30 | disposition home or self-care (01) ==
LOC: ED 14:29
DX: S96.912A Strain of unspecified muscle and tendon at ankle and foot level, left foot, initial encounter (principal); I10 Essential (primary) hypertension; M19.90 Unspecified osteoarthritis, unspecified site; G43.909 Migraine, unspecified, not intractable, without status migrainosus; J44.9 Chronic obstructive pulmonary disease, unspecified; Z86.718 Personal history of other venous thrombosis and embolism; Z88.0 Allergy status to penicillin; Z91.041 Radiographic dye allergy status; Z90.49 Acquired absence of other specified parts of digestive tract; Z79.82 Long term (current) use of aspirin; X58.XXXA Exposure to other specified factors, initial encounter; Y93.89 Activity, other specified; Y92.098 Other place in other non-institutional residence as the place of occurrence of the external cause; Y99.8 Other external cause status

== ENCOUNTER 2020-09-22 07:52 | Emergency (ER) | payer MEDICARE ==
[2020-09-22] MEDS ORDERED: ACETAMINOPHEN 500 MG TAB PO ONE (10:00)
[2020-09-22] MEDS ORDERED: ALBUTEROL 2.5 MG/3 ML NEBU IH ONE (10:00)
--- NOTE | 2020-09-22 10:01 | Emergency Department Report ---
ED General Adult HPI - General Chief complaint: Dyspnea/Respdistress Stated complaint: LEGS SWOLLEN/RT SIDE PAIN PUI?: No Time Seen by Provider: 09/22/20 09:25 Source: patient, RN notes reviewed, old records reviewed Mode of arrival: Ambulatory Limitations: No Limitations, Physical Limitation - History of Present Illness Initial comments: The patient was evaluated in the emergency department for symptoms described in the history of present illness. He/she was evaluated in the context of the global COVID-19 pandemic, which necessitated consideration that the patient might be at risk for infection with the virus that causes COVID-19. Institutional protocols and algorithms that pertain to the evaluation of patients at risk for COVID-19 are in a state of rapid change based on information released by regulatory bodies including the CDC and federal and state organizations. These policies and algorithms were followed during the patient's care in the emergency department. Please note that these policies, procedures and recommendations changed on a rapid basis. Patient is a 55-year-old female. She typically follows at [facility]. Past medical history includes morbid obesity, COPD, obstructive sleep apnea, reported compliance with CPAP, DVT, seizure, distant history of cholecystectomy, and history of high-grade small bowel obstruction, and nephrolithiasis. Patient presents to the ER today with multiple complaints. Her first complaint is bilateral lower extremity pain, swelling and tightness, present for months. She is taking a "water pill" that was prescribed by her primary care doctor, she cannot recall the name, dosage. She endorses compliance with this medication. Her next complaint is chronic exertional shortness of breath, no recent travel, surgery, or immobilization. Her next complaint is right sided sharp throbbing abdominal pain, present for 2 weeks. She also endorses dysuria. She denies headache, neck pain, chest pain. She denies recent travel, surgery, immobilization. She also states that she has chronic anemia, and has chronic dark stools, secondary to iron sulfate supplementation. She has no vomiting blood, or defecation of bright red blood. -: Gradual, week(s), month(s) Location: abdomen, left, right, lower extremity Radiation: non-radiation Severity scale (0 -10): 10 Quality: aching Consistency: constant Improves with: rest Worsens with: movement - Related Data Home Medications Medication Instructions Recorded Confirmed Last Taken Beclomethasone Dipropionate [Qvar 80 mg INHALATION DAILY 07/07/15 09/22/20 02/12/18 80MCG] Verapamil HCl [Verapamil ER] 240 mg PO DAILY 07/07/15 09/22/20 02/13/18 Lisinopril/Hydrochlorothiazide 1 tab PO DAILY 01/09/16 09/22/20 02/13/18 [Lisinopril-Hctz 20-25 mg Tab] raNITIdine HCl [Zantac] 150 mg PO DAILY 10/26/16 09/22/20 02/12/18 DULoxetine [Cymbalta] 60 mg PO QDAY 09/22/20 09/22/20 Unknown Previous Rx's Medication Instructions Recorded Last Taken Type HYDROcodone/APAP 5-325 [[place] 1 each PO Q6HR PRN #15 tablet 10/18/18 Unknown Rx 5/325] Ibuprofen [Motrin] 800 mg PO Q8HR PRN #30 tablet 10/18/18 Unknown Rx levETIRAcetam [Keppra TAB] 500 mg PO BID #60 tablet 10/18/18 Unknown Rx traMADoL [Ultram] 50 mg PO Q6HR PRN #12 tablet 05/08/19 Unknown Rx Albuterol Sulfate [Albuterol 0.63% 0.63 mg IH TID PRN #1 box 09/22/20 Unknown Rx NEBS] Furosemide [Lasix TAB] 20 mg PO BID #28 tablet 09/22/20 Unknown Rx Ipratropium (Nf) [Atrovent] 2 puff IH Q6HR PRN #1 inha 09/22/20 Unknown Rx Magnesium Oxide 400 mg PO QDAY #30 tablet 09/22/20 Unknown Rx Nitrofurantoin [place]/M-Cryst 100 mg PO BID #13 capsule 09/22/20 Unknown Rx [Macrobid CAP] Potassium Chloride [K-Dur] 20 meq PO BID #28 tab 09/22/20 Unknown Rx hydroCHLOROthiazide [HCTZ] 25 mg PO QHS #14 tablet 09/22/20 Unknown Rx Allergies Allergy/AdvReac Type Severity Reaction Status Date / Time Penicillins Allergy Severe Anaphylaxis Verified 05/08/19 10:14 Iodinated Contrast Media AdvReac Swelling Verified 05/08/19 10:14 [Iodinated Contrast Media - IV Dye] ED Review of Systems ROS: Stated complaint: LEGS SWOLLEN/RT SIDE PAIN Other details as noted in HPI Constitutional: malaise, weakness. denies: fever Eyes: denies: eye discharge ENT: congestion. denies: epistaxis Respiratory: shortness of breath, wheezing Cardiovascular: dyspnea on exertion, orthopnea, edema. denies: chest pain Gastrointestinal: abdominal pain, nausea. denies: hematemesis, hematochezia Genitourinary: dysuria Musculoskeletal: arthralgia, myalgia Neurological: weakness Hematological/Lymphatic: denies: easy bleeding ED Past Medical Hx - Past Medical History Previous Medical History?: Yes Hx Hypertension: Yes (X 7 YRS) Hx Heart Attack/AMI: No Hx Deep Vein Thrombosis: Yes Hx GERD: Yes Hx Renal Disease: No Hx Arthritis: Yes Hx Headaches / Migraines: Yes (MIGRAINES) Hx Seizures: Yes (LAST SEIZURE 2 MONTHS AGO- NEVER BEEN ON MEDS) Hx Kidney Stones: Yes Hx Asthma: Yes (DAILY INHALERS) Hx COPD: Yes Hx HIV: No - Surgical History Past Surgical History?: Yes Hx Cholecystectomy: Yes Additional Surgical History: MULT SURG RIGHT LEG. . STENT LEFT KIDNEY - Social History Smoking Status: Never Smoker - Medications Home Medications: Home Medications Medication Instructions Recorded Confirmed Last Taken Type Beclomethasone Dipropionate [Qvar 80 mg INHALATION DAILY 07/07/15 09/22/20 02/12/18 History 80MCG] Verapamil HCl [Verapamil ER] 240 mg PO DAILY 07/07/15 09/22/20 02/13/18 History Lisinopril/Hydrochlorothiazide 1 tab PO DAILY 01/09/16 09/22/20 02/13/18 History [Lisinopril-Hctz 20-25 mg Tab] raNITIdine HCl [Zantac] 150 mg PO DAILY 10/26/16 09/22/20 02/12/18 History HYDROcodone/APAP 5-325 [[place] 1 each PO Q6HR PRN #15 tablet 10/18/18 09/22/20 Unknown Rx 5/325] Ibuprofen [Motrin] 800 mg PO Q8HR PRN #30 tablet 10/18/18 09/22/20 Unknown Rx levETIRAcetam [Keppra TAB] 500 mg PO BID #60 tablet 10/18/18 09/22/20 Unknown Rx traMADoL [Ultram] 50 mg PO Q6HR PRN #12 tablet 05/08/19 09/22/20 Unknown Rx Albuterol Sulfate [Albuterol 0.63% 0.63 mg IH TID PRN #1 box 09/22/20 Unknown Rx NEBS] DULoxetine [Cymbalta] 60 mg PO QDAY 09/22/20 09/22/20 Unknown History Furosemide [Lasix TAB] 20 mg PO BID #28 tablet 09/22/20 Unknown Rx Ipratropium (Nf) [Atrovent] 2 puff IH Q6HR PRN #1 inha 09/22/20 Unknown Rx Magnesium Oxide 400 mg PO QDAY #30 tablet 09/22/20 Unknown Rx Nitrofurantoin [place]/M-Cryst 100 mg PO BID #13 capsule 09/22/20 Unknown Rx [Macrobid CAP] Potassium Chloride [K-Dur] 20 meq PO BID #28 tab 09/22/20 Unknown Rx hydroCHLOROthiazide [HCTZ] 25 mg PO QHS #14 tablet 09/22/20 Unknown Rx ED Physical Exam - General Limitations: No Limitations General appearance: alert, anxious, obese - Head Head exam: Present: atraumatic, normocephalic - Eye Eye exam: Present: normal appearance, EOMI. Absent: nystagmus - ENT ENT exam: Present: normal exam, normal orophraynx, normal external ear exam, other (Patient has poor dentition) - Neck Neck exam: Present: normal inspection, full ROM. Absent: tenderness, meningismus - Respiratory Respiratory exam: Present: rales. Absent: respiratory distress, rhonchi, stridor - Cardiovascular Cardiovascular Exam: Present: regular rate, normal rhythm, normal heart sounds. Absent: bradycardia, tachycardia, irregular rhythm, systolic murmur, diastolic murmur, rubs, gallop - GI/Abdominal GI/Abdominal exam: Present: soft, distended, tenderness. Absent: guarding, rebound, rigid, pulsatile mass - Extremities Exam Extremities exam: Present: normal inspection, full ROM, tenderness (There is mild diffuse soft tissue tenderness with soft compartments.), pedal edema (2-3+ edema noted in the bilateral lower extremities), other (2+ pulses noted in the bilateral upper and lower extremities. There is no palpable cord. negative Homans sign. Muscular compartments are soft. The pelvis is stable.) - Back Exam Back exam: Present: normal inspection, CVA tenderness (R). Absent: tenderness, CVA tenderness (L), paraspinal tenderness, vertebral tenderness - Neurological Exam Neurological exam: Present: alert, other (No facial droop. Tongue midline. Extraocular movements intact bilaterally. Facial sensation intact to light touch in V1, V2, V3 distribution bilaterally. 5 and a 5 strength in 4 extremities. Sensation intact to light touch in 4 extremities.) - Psychiatric Psychiatric exam: Present: normal affect, normal mood - Skin Skin exam: Present: warm, dry, intact, normal color. Absent: rash ED Course Vital Signs 09/22/20 09/22/20 09/22/20 08:13 09:24 09:25 Temperature 98.8 F Pulse Rate 75 Pulse Rate [ Anterior Bilateral Throughout] Respiratory 22 20 Rate Respiratory Rate [Anterior Bilateral Throughout] Blood Pressure 139/60 Blood Pressure [Left] O2 Sat by Pulse 97 96 96 Oximetry 09/22/20 09/22/20 09/22/20 09:28 09:30 09:45 Temperature Pulse Rate 70 Pulse Rate [ Anterior Bilateral Throughout] Respiratory 20 Rate Respiratory Rate [Anterior Bilateral Throughout] Blood Pressure 122/66 121/97 Blood Pressure 127/68 [Left] O2 Sat by Pulse 97 98 98 Oximetry 09/22/20 09/22/20 09/22/20 10:01 10:15 10:31 Temperature Pulse Rate Pulse Rate [ Anterior Bilateral Throughout] Respiratory Rate Respiratory Rate [Anterior Bilateral Throughout] Blood Pressure 120/66 120/66 103/60 Blood Pressure [Left] O2 Sat by Pulse 98 99 97 Oximetry 09/22/20 09/22/20 09/22/20 10:45 11:09 11:15 Temperature Pulse Rate 74 Pulse Rate [ Anterior Bilateral Throughout] Respiratory 16 Rate Respiratory Rate [Anterior Bilateral Throughout] Blood Pressure 103/60 104/77 104/77 Blood Pressure [Left] O2 Sat by Pulse 99 100 100 Oximetry 09/22/20 09/22/20 09/22/20 11:17 11:31 12:07 Temperature Pulse Rate Pulse Rate [ 69 Anterior Bilateral Throughout] Respiratory Rate Respiratory 20 Rate [Anterior Bilateral Throughout] Blood Pressure 103/56 128/65 Blood Pressure [Left] O2 Sat by Pulse 99 100 Oximetry 09/22/20 09/22/20 12:15 12:23 Temperature Pulse Rate 69 Pulse Rate [ Anterior Bilateral Throughout] Respiratory Rate Respiratory Rate [Anterior Bilateral Throughout] Blood Pressure 115/63 Blood Pressure 115/63 [Left] O2 Sat by Pulse 100 100 Oximetry - Reevaluation(s) Reevaluation #1: 09/22/20 10:19 Differential diagnosis, including but limited to: Dependent edema, CHF, right- sided heart failure, DVT, obstruction, colitis, diverticulitis, renal colic, urinary tract infection, COPD Assessment and plan: 55-year-old female with multiple complaints. Complaints #1, lower extremity pain and swelling. Suspect dependent edema versus mild CHF. Obtain x-ray of the chest, lower extremity DVT, appropriate laboratory studies, give albuterol for history of COPD, we will request the pat ient's home medications reconciled, and reassess. Complaint #2, abdominal pain. Check urinalysis, EKG, CT scan of the abdomen pelvis, initiate analgesia, and reassess. Patient morbidly obese, with poor diet and lifestyle compliance, we highly suspect r right-sided cardiac dysfunction, pulmonary hypertension, and will reassess once initial diagnostics have resulted 09/22/20 12:40 Reevaluation #2: 09/22/20 12:41 Patient reassessed. DVT study negative for acute findings. X-ray of the chest negative for acute findings. CT scan of the abdomen pelvis negative for acute findings. Urinalysis, laboratory studies reviewed and appreciated. Resting comfortably at this time, and in no acute distress. There may be a component of right-sided congestive heart failure/cardiac dysfunction, however I suspect that this is chronic. CT scan shows no findings of fluid on patient's lung bases. 09/22/20 12:41 proBNP within normal limits, and liver function tests within normal limits, arguing against congestive hepatopathy. I have reviewed the patient's home prescriptions. We will increase her dose of Lasix, increase HCTZ dose, discharged with Macrobid, potassium supplementation, magnesium supplementation, she will need to follow-up with outpatient primary care, pulmonary, and/or cardiology. Patient observed in this department for hours without clinical decompensation. Patient is suitable for trial of outpatient management at this time. ED Medical Decision Making - Lab Data Result diagrams: 09/22/20 10:27 09/22/20 10:27 Vital Signs 09/22/20 09/22/20 09/22/20 08:13 09:24 09:25 Temperature 98.8 F Pulse Rate 75 Respiratory 22 20 Rate Blood Pressure 139/60 Blood Pressure [Left] O2 Sat by Pulse 97 96 96 Oximetry 09/22/20 09/22/20 09/22/20 09:28 09:30 09:45 Temperature Pulse Rate 70 Respiratory 20 Rate Blood Pressure 122/66 121/97 Blood Pressure 127/68 [Left] O2 Sat by Pulse 97 98 98 Oximetry - EKG Data -: EKG Interpreted by Ks EKG shows normal: sinus rhythm Rate: normal - EKG Data 09/22/20 10:42 Sinus rhythm, 67 bpm, normal axis, WV interval prolonged, QTC within normal limits, low voltage in the lateral leads. Unchanged from prior EKG from November 2017. This EKG is not a STEMI. - Radiology Data Radiology results: pending, report reviewed, image reviewed CHEST 1 VIEW INDICATION: Dyspnea. COMPARISON: 08/25/2018 FINDINGS: Support devices: None. Heart: Normal. Lungs/Pleura: No acute pulmonary or pleural findings. IMPRESSION: 1. No acute findings. Signer Name: Kenny Dugan MD Signed: 09/22/2020 9:18 AM Workstation Name: [id number] Print Report Referring Physician: BEBO NICHOLSON Patient Name: VARUN ARGUELLO Date of : 1965 Sex: Female Report Date: 2020-09-22 Report Status: [place] [address] Vascular Lab Report Signed Patient: VARUN ARGUELLO MR#: [id number] : 1965 Acct:[id number] Age/Sex: 55 / F ADM Date: 09/22/20 Loc: ED Att ending Dr: Ordering Physician: BEBO NICHOLSON MD Date of Service: 09/22/20 Procedure(s): VL venous duplex LE BILAT Accession Number(s): [id number] cc: BEBO NICHOLSON MD DUPLEX DOPPLER LOWER EXTREMITY VEINS, BILATERAL INDICATION / CLINICAL INFORMATION: Shortness of Breath R/O DVT. TECHNIQUE: Duplex doppler imaging was performed through the veins of both lower extremities using venous compression and other maneuvers. COMPARISON: None available. FINDINGS: RIGHT COMMON FEMORAL VEIN: Negative. RIGHT FEMORAL VEIN: Negative. RIGHT POPLITEAL VEIN: Negative. RIGHT CALF VEINS: Negative. LEFT COMMON FEMORAL VEIN: Negative. LEFT FEMORAL VEIN: Negative. LEFT POPLITEAL VEIN: Negative. LEFT CALF VEINS: Negative. ADDITIONAL FINDINGS: None. IMPRESSION: 1. No sonographic evidence for DVT in either lower extremity. Signer Name: Kenny Dugan MD Signed: 09/22/2020 12:27 PM Workstation Name: [id number] Transcribed By: Dictated By: Kenny Dugan MD Electronically Authenticated By: Kenny Dugan MD Signed Date/Time: 09/22/201226 DD/ 26 Print Report Referring Physician: BEBO NICHOLSON Patient Name: VARUN ARGUELLO Date of : 1965 Sex: Female Report Date: 2020-09-22 Report Status: Finalized Findings [facility] [address] [place] [address] Cat Scan Report Signed Patient: VARUN ARGUELLO MR#: [id number] : 1965 Acct:[id number] Age/Sex: 55 / F ADM Date: 09/22/20 Loc: ED Attending Dr: Ordering Physician: BEBO NICHOLSON MD Date of Service: 09/22/20 Procedure(s): CT abdomen pelvis wo con Accession Number(s): [id number] cc: BEBO NICHOLSON MD CT abdomen pelvis wo con INDICATION / CLINICAL INFORMATION: Abdominal pain, diffuse TECHNIQUE: Routine CT abdomen and pelvis without IV contrast All CT scans at this location are performed using CT dose reduction for ALARA by means of automated exposure control. COMPARISON: 12/03/2017 FINDINGS: Abdomen and pelvis: The lumbar lungs are clear. Prior cholecystectomy. The liver, spleen, pancreas and adrenal glands and right kidney appear unremarkable aside from hepatomegaly.. Nonobstructive small calculi noted within the lower pole the left kidney. No free air or free fluid. No bowel obstruction. Review of the pelvis demonstrates multiple partially calcified fibroids within the uterus. There is colonic diverticulosis but no diverticulitis. Urinary bladder is partially fluid distended. Scattered atherosclerotic calcification throughout a nondilated abdominal aorta. Review of bone windows demonstrates thoracolumbar type degenerative changes. IMPRESSION: 1. No acute findings. The liver is moder ately enlarged measuring 20 cm craniocaudal. 2. Fibroid uterus 3. Nonobstructive left-sided nephrolithiasis. Signer Name: Anthony Hannon MD Signed: 09/22/2020 11:40 AM Workstation Name: [id number] Transcribed By: BC Dictated By: Anthony Hannon MD Electronically Authenticated By: Anthony Hannon MD Signed Date/Time: 09/22/20 1140 DD/ 1136 TD/TT: Critical care attestation.: If time is entered above; I have spent that time in minutes in the direct care of this critically ill patient, excluding procedure time. ED Disposition Clinical Impression: Right sided abdominal pain, Dysuria, Lower extremity edema, Hypokalemia, Hypomagnesemia, Obesity, History of COPD Disposition: - TO HOME OR SELFCARE Is pt being admited?: No Does the pt Need Aspirin: No Condition: Stable Additional Instructions: Cultures were sent today, and results will be available in the next 3 to 5 days. Please have your primary care doctor contact the medical records department to obtain culture results. Take the potassium, magnesium supplementation as directed, and diuretic/water pills as directed. Follow-up with a primary care doctor or intelligence operations specialist within the next 5 to 7 days. Continue home CPAP therapy, and follow-up with a automobiles salesperson, such as Dr. Carbajal, within the next month. Recommend aggressive weight loss, exercise as tolerated, avoidance of simple carbohydrates, sugar, starch and processed foods, consumption of fiber, vegetables, lean protein. Please return to the emergency room right away with new pain, worsening pain, migration of pain, projectile vomiting, change in mental status, confusion, inability to tolerate liquid feeds, new, worsened or different symptoms not present on the initial emergency room evaluation. Referrals: ZINA RANDLE MD [Staff Physician] - 3-5 Days PADMINI RUSSELL MD [Staff Physician] - 3-5 Days SUSIE CARBAJAL MD [Staff Physician] - 3-5 Days
--- NOTE | 2020-09-22 10:22 | XRay Report ---
CHEST 1 VIEW INDICATION: Dyspnea. COMPARISON: 08/25/2018 FINDINGS: Support devices: None. Heart: Normal. Lungs/Pleura: No acute pulmonary or pleural findings. IMPRESSION: 1. No acute findings. Signer Name: Kenny Dugan MD Signed: 09/22/2020 10:18 AM Workstation Name: [id number]
[2020-09-22 11:12] LABS: Basophils % (Auto) 0.2 % (0.0-1.8); Eosinophils # (Auto) 0.2 K/mm3 (0.0-0.4); Eosinophils % (Auto) 2.7 % (0.0-4.3); Hematocrit 35.2 % (30.3-42.9); Hemoglobin 11.2 gm/dl (10.1-14.3); Lymphocytes # (Auto) 1.7 K/mm3 (1.2-5.4); Lymphocytes % (Auto) 23.9 % (13.4-35.0); Mean Corpuscular HGB Conc 32 % (30-34); Mean Corpuscular Volume 91 fl (79-97); Monocytes # (Auto) 0.5 K/mm3 (0.0-0.8); Monocytes % (Auto) 6.4 % (0.0-7.3); Platelet Count 191 K/mm3 (140-440); Red Blood Count 3.86 M/mm3 (3.65-5.03)
[2020-09-22 11:14] LABS: Bacteria,Urine 2+ /HPF (Negative); Bilirubin,Urine NEG (Negative); Blood,Urine SM (Negative); Color,Urine Yellow (Yellow)
[2020-09-22 11:20] LABS: INR 0.97 (0.87-1.13)
[2020-09-22 11:35] LABS: Alanine Aminotransferase 15 units/L (7-56); Albumin 3.5 g/dL (3.9-5); BUN/Creatinine Ratio 8; Blood Urea Nitrogen 10 mg/dL (7-17); Calcium 8.8 mg/dL (8.4-10.2); Hemolysis Index 5
[2020-09-22] MEDS ORDERED: POTASSIUM CHLORIDE ER 20 MEQ TAB PO ONE (11:41)
[2020-09-22] MEDS ORDERED: MAGNESIUM OXIDE 400 MG TAB PO STA (11:43)
--- NOTE | 2020-09-22 11:45 | Cat Scan Report ---
CT abdomen pelvis wo con INDICATION / CLINICAL INFORMATION: Abdominal pain, diffuse TECHNIQUE: Routine CT abdomen and pelvis without IV contrast All CT scans at this location are performed using C T dose reduction for ALARA by means of automated exposure control. COMPARISON: 12/03/2017 FINDINGS: Abdomen and pelvis: The lumbar lungs are clear. Prior cholecystectomy. The liver, spleen, pancreas and adrenal glands and right kidney appear unremar kable aside from hepatomegaly.. Nonobstructive small calculi noted within the lower pole the left kid will. No free air or free fluid. No bowel obstruction. Review of the pelvis demonstrates multiple part ially calcified fibroids within the uterus. There is colonic diverticulosis but no diverticulitis. Ur inary bladder is partially fluid distended. Scattered atherosclerotic calcification throughout a nond ilated abdominal aorta. Review of bone windows demonstrates thoracolumbar type degenerative changes. IMPRESSION: 1. No acute findings. The liver is moderately enlarged measuring 20 cm craniocaudal. 2. Fibroid uterus 3. Nonobstructive left-sided nephrolithiasis. Signer Name: Anthony Hannon MD Signed: 09/22/2020 11:40 AM Workstation Name: [id number]
--- NOTE | 2020-09-22 12:32 | Vascular Lab Report ---
DUPLEX DOPPLER LOWER EXTREMITY VEINS, BILATERAL INDICATION / CLINICAL INFORMATION: Shortness of Breath R/O DVT. TECHNIQUE: Duplex doppler imaging was performed through the veins of both lower extremities using venous [place] and other maneuvers. COMPARISON: None available. FINDINGS: RIGHT COMMON FEMORAL VEIN: Negative. RIGHT FEMORAL VEIN: Negative. RIGHT POPLITEAL VEIN: Negative. RIGHT CALF VEINS: Negative. LEFT COMMON FEMORAL VEIN: Negative. LEFT FEMORAL VEIN: Negative. LEFT POPLITEAL VEIN: Negative. LEFT CALF VEINS: Negative. ADDITIONAL FINDINGS: None. IMPRESSION: 1. No sonographic evidence for DVT in either lower extremity. Signer Name: Kenny Dugan MD Signed: 09/22/2020 12:27 PM Workstation Name: [id number]
[2020-09-22] MEDS ORDERED: NITROFURANTOIN MONOHYD/M-CRYST 100 MG CAP PO ONE (12:39)
[2020-09-22] MEDS ORDERED: FUROSEMIDE 20 MG TAB PO ONE (12:39)
[2020-09-22] MEDS ORDERED: hydroCHLOROthiazide 25 MG TAB PO ONE (12:39)
[2020-09-22 13:29] VITALS: BP 115/58
== END 2020-09-22 13:36 | disposition home or self-care (01) ==
LOC: ED 07:52
DX: E83.42 Hypomagnesemia (principal); E87.6 Hypokalemia; R60.0 Localized edema; R30.0 Dysuria; R10.9 Unspecified abdominal pain; G47.33 Obstructive sleep apnea (adult) (pediatric); E66.01 Morbid (severe) obesity due to excess calories; J44.9 Chronic obstructive pulmonary disease, unspecified; I10 Essential (primary) hypertension; K21.9 Gastro-esophageal reflux disease without esophagitis; M19.90 Unspecified osteoarthritis, unspecified site; G43.909 Migraine, unspecified, not intractable, without status migrainosus; Z86.69 Personal history of other diseases of the nervous system and sense organs; Z88.0 Allergy status to penicillin; Z91.041 Radiographic dye allergy status; Z68.43 Body mass index [BMI] 50.0-59.9, adult; Z90.49 Acquired absence of other specified parts of digestive tract; Z79.899 Other long term (current) drug therapy; Z98.890 Other specified postprocedural states
CPT/HCPCS: 36415; 71045; 74176; 80053; 81001; 82550; 83735; 83880; 84484; 85025; 85610; 87086; 93005; 93970; 94640; 94644

== ENCOUNTER 2020-12-12 11:00 | Outpatient (CLI) | payer MEDICARE | END 2020-12-13 11:00 | disposition home or self-care (01) | LOC: SLR 11:00 | PROVIDERS: ATTEND Internal Medicine | DX: G47.33 Obstructive sleep apnea (adult) (pediatric) (principal) | CPT/HCPCS: 95811 ==

== ENCOUNTER 2022-04-22 07:34 | Emergency (ER) | payer MEDICARE ==
--- NOTE | 2022-04-22 11:03 | Emergency Department Report ---
ED ENT HPI - General Chief complaint: Dental/Oral Stated complaint: DENTAL ISSUES Source: patient Mode of arrival: Ambulatory Limitations: No Limitations - History of Present Illness Initial comments: 56-year-old female presents to the ED with gum pain x1 week. Patient states that she had 16 tooth extracted 1 month ago. She states she has been wearing dentures that has been very uncomfortable to wear. She stated that she noticed some edema to her bottom gumline which has caused intense pain. She states she has removed her dentures and has not contacted the the dentist. Patient states that pain is a current 5 out of 10. Patient denies any fever or chills at present. Patient is alert and oriented x3. No acute distress noted. No ill appearance noted. - Related Data Home Medications Medication Instructions Recorded Confirmed Last Taken Beclomethasone Dipropionate [Qvar 80 mg INHALATION DAILY 07/07/15 09/22/20 02/12/18 80MCG] Verapamil HCl [Verapamil ER] 240 mg PO DAILY 07/07/15 09/22/20 02/13/18 Lisinopril/Hydrochlorothiazide 1 tab PO DAILY 01/09/16 09/22/20 02/13/18 [Lisinopril-Hctz 20-25 mg Tab] raNITIdine HCl [Zantac] 150 mg PO DAILY 10/26/16 09/22/20 02/12/18 DULoxetine [Cymbalta] 60 mg PO QDAY 09/22/20 09/22/20 Unknown Previous Rx's Medication Instructions Recorded Last Taken Type HYDROcodone/APAP 5-325 [Herreid 1 each PO Q6HR PRN #15 tablet 10/18/18 Unknown Rx 5/325] Ibuprofen [Motrin] 800 mg PO Q8HR PRN #30 tablet 10/18/18 Unknown Rx levETIRAcetam [Keppra TAB] 500 mg PO BID #60 tablet 10/18/18 Unknown Rx traMADoL [Ultram] 50 mg PO Q6HR PRN #12 tablet 05/08/19 Unknown Rx Albuterol Sulfate [Albuterol 0.63% 0.63 mg IH TID PRN #1 box 09/22/20 Unknown Rx NEBS] Furosemide [Lasix TAB] 20 mg PO BID #28 tablet 09/22/20 Unknown Rx Ipratropium (Nf) [Atrovent] 2 puff IH Q6HR PRN #1 inha 09/22/20 Unknown Rx Magnesium Oxide 400 mg PO QDAY #30 tablet 09/22/20 Unknown Rx Nitrofurantoin [place]/M-Cryst 100 mg PO BID #13 capsule 09/22/20 Unknown Rx [Macrobid CAP] Potassium Chloride [K-Dur] 20 meq PO BID #28 tab 09/22/20 Unknown Rx hydroCHLOROthiazide [HCTZ] 25 mg PO QHS #14 tablet 09/22/20 Unknown Rx Acetaminophen/Codeine [Tylenol 1 tab PO Q6H PRN 3 Days #12 tab 04/22/22 Unknown Rx /Codeine # 3 tab] Clindamycin [Clindamycin CAP] 600 mg PO BID 10 Days #20 capsule 04/22/22 Unknown Rx Allergies Allergy/AdvReac Type Severity Reaction Status Date / Time Penicillins Allergy Severe Anaphylaxis Verified 04/22/22 07:45 Iodinated Contrast Media AdvReac Swelling Verified 04/22/22 07:45 [Iodinated Contrast Media - IV Dye] ED Dental HPI - General Chief complaint: Dental/Oral Stated complaint: DENTAL ISSUES Source: patient Mode of arrival: Ambulatory Limitations: No Limitations - Related Data Home Medications Medication Instructions Recorded Confirmed Last Taken Beclomethasone Dipropionate [Qvar 80 mg INHALATION DAILY 07/07/15 09/22/20 02/12/18 80MCG] Verapamil HCl [Verapamil ER] 240 mg PO DAILY 07/07/15 09/22/20 02/13/18 Lisinopril/Hydrochlorothiazide 1 tab PO DAILY 01/09/16 09/22/20 02/13/18 [Lisinopril-Hctz 20-25 mg Tab] raNITIdine HCl [Zantac] 150 mg PO DAILY 10/26/16 09/22/20 02/12/18 DULoxetine [Cymbalta] 60 mg PO QDAY 09/22/20 09/22/20 Unknown Previous Rx's Medication Instructions Recorded Last Taken Type HYDROcodone/APAP 5-325 [Herreid 1 each PO Q6HR PRN #15 tablet 10/18/18 Unknown Rx 5/325] Ibuprofen [Motrin] 800 mg PO Q8HR PRN #30 tablet 10/18/18 Unknown Rx levETIRAcetam [Keppra TAB] 500 mg PO BID #60 tablet 10/18/18 Unknown Rx traMADoL [Ultram] 50 mg PO Q6HR PRN #12 tablet 05/08/19 Unknown Rx Albuterol Sulfate [Albuterol 0.63% 0.63 mg IH TID PRN #1 box 09/22/20 Unknown Rx NEBS] Furosemide [Lasix TAB] 20 mg PO BID #28 tablet 09/22/20 Unknown Rx Ipratropium (Nf) [Atrovent] 2 puff IH Q6HR PRN #1 inha 09/22/20 Unknown Rx Magnesium Oxide 400 mg PO QDAY #30 tablet 09/22/20 Unknown Rx Nitrofurantoin [place]/M-Cryst 100 mg PO BID #13 capsule 09/22/20 Unknown Rx [Macrobid CAP] Potassium Chloride [K-Dur] 20 meq PO BID #28 tab 09/22/20 Unknown Rx hydroCHLOROthiazide [HCTZ] 25 mg PO QHS #14 tablet 09/22/20 Unknown Rx Acetaminophen/Codeine [Tylenol 1 tab PO Q6H PRN 3 Days #12 tab 04/22/22 Unknown Rx /Codeine # 3 tab] Clindamycin [Clindamycin CAP] 600 mg PO BID 10 Days #20 capsule 04/22/22 Unknown Rx Allergies Allergy/AdvReac Type Severity Reaction Status Date / Time Penicillins Allergy Severe Anaphylaxis Verified 04/22/22 07:45 Iodinated Contrast Media AdvReac Swelling Verified 04/22/22 07:45 [Iodinated Contrast Media - IV Dye] ED Review of Systems ROS: Stated complaint: DENTAL ISSUES Other details as noted in HPI Constitutional: denies: chills, fever Eyes: denies: eye pain, eye discharge, vision change ENT: other (gum). denies: ear pain, throat pain Respiratory: denies: cough, shortness of breath, wheezing Cardiovascular: denies: chest pain, palpitations Endocrine: no symptoms reported Gastrointestinal: denies: abdominal pain, nausea, diarrhea Genitourinary: denies: urgency, dysuria, discharge Musculoskeletal: denies: back pain, joint swelling, arthralgia Skin: denies: rash, lesions Neurological: denies: headache, weakness, paresthesias Psychiatric: denies: anxiety, depression Hematological/Lymphatic: denies: easy bleeding, easy bruising ED Past Medical Hx - Past Medical History Hx Hypertension: Yes (X 7 YRS) Hx Heart Attack/AMI: No Hx Deep Vein Thrombosis: Yes Hx GERD: Yes Hx Renal Disease: No Hx Arthritis: Yes Hx Headaches / Migraines: Yes (MIGRAINES) Hx Seizures: Yes (LAST SEIZURE 2 MONTHS AGO- NEVER BEEN ON MEDS) Hx Kidney Stones: Yes Hx Asthma: Yes (DAILY INHALERS) Hx COPD: Yes Hx HIV: No - Surgical History Hx Cholecystectomy: Yes Additional Surgical History: MULT SURG RIGHT LEG. . STENT LEFT KIDNEY - Social History Smoking Status: Never Smoker - Medications Home Medications: Home Medications Medication Instructions Recorded Confirmed Last Taken Type Beclomethasone Dipropionate [Qvar 80 mg INHALATION DAILY 07/07/15 09/22/20 02/12/18 History 80MCG] Verapamil HCl [Verapamil ER] 240 mg PO DAILY 07/07/15 09/22/20 02/13/18 History Lisinopril/Hydrochlorothiazide 1 tab PO DAILY 01/09/16 09/22/20 02/13/18 History [Lisinopril-Hctz 20-25 mg Tab] raNITIdine HCl [Zantac] 150 mg PO DAILY 10/26/16 09/22/20 02/12/18 History HYDROcodone/APAP 5-325 [Herreid 1 each PO Q6HR PRN #15 tablet 10/18/18 09/22/20 Unknown Rx 5/325] Ibuprofen [Motrin] 800 mg PO Q8HR PRN #30 tablet 10/18/18 09/22/20 Unknown Rx levETIRAcetam [Keppra TAB] 500 mg PO BID #60 tablet 10/18/18 09/22/20 Unknown Rx traMADoL [Ultram] 50 mg PO Q6HR PRN #12 tablet 05/08/19 09/22/20 Unknown Rx Albuterol Sulfate [Albuterol 0.63% 0.63 mg IH TID PRN #1 box 09/22/20 Unknown Rx NEBS] DULoxetine [Cymbalta] 60 mg PO QDAY 09/22/20 09/22/20 Unknown History Furosemide [Lasix TAB] 20 mg PO BID #28 tablet 09/22/20 Unknown Rx Ipratropium (Nf) [Atrovent] 2 puff IH Q6HR PRN #1 inha 09/22/20 Unknown Rx Magnesium Oxide 400 mg PO QDAY #30 tablet 09/22/20 Unknown Rx Nitrofurantoin [place]/M-Cryst 100 mg PO BID #13 capsule 09/22/20 Unknown Rx [Macrobid CAP] Potassium Chloride [K-Dur] 20 meq PO BID #28 tab 09/22/20 Unknown Rx hydroCHLOROthiazide [HCTZ] 25 mg PO QHS #14 tablet 09/22/20 Unknown Rx Acetaminophen/Codeine [Tylenol 1 tab PO Q6H PRN 3 Days #12 tab 04/22/22 Unknown Rx /Codeine # 3 tab] Clindamycin [Clindamycin CAP] 600 mg PO BID 10 Days #20 capsule 04/22/22 Unknown Rx ED Physical Exam - General Limitations: No Limitations ED Course Vital Signs 04/22/22 04/22/22 07:41 11:40 Temperature 98.2 F 93.4 F L Pulse Rate 101 H 82 Respiratory 18 16 Rate Blood Pressure 154/90 147/83 [Right] O2 Sat by Pulse 99 Oximetry ED Medical Decision Making - Medical Decision Making 56-year-old female presents to the ED with gum pain x1 week. Patient states that she had 16 tooth extracted 1 month ago. She states she has been wearing dentures that has been very uncomfortable to wear. She stated that she noticed some edema to her bottom gumline which has caused intense pain. She states she has removed her dentures and has not contacted the the dentist. Patient states that pain is a current 5 out of 10. Patient denies any fever or chills at present. Patient is alert and oriented x3. No acute distress noted. No ill appearance noted. Physical examination patient has erythema noted to the bottom gumline. No trismus noted .uvula midline Rechecked the patient is resting quietly quietly and comfortable and feeling better. I discussed the results of diagnostic study, my clinical impression and the plan for further treatment with the patient. Patient agrees with plan and discharge at this present time. All question addressed. I have given the patient instruction regarding a diagnosis ,expectation ,follow- up and return precaution. I explained to the patient that emergent condition may arise and to return to the ED for new worsen and any new persisting condition. I have explained the importance of following up with the primary care physician or referral physician listed below has instructed. The patient verbalized understanding of discharge instruction. Critical care attestation.: If time is entered above; I have spent that time in minutes in the direct care of this critically ill patient, excluding procedure time. ED Disposition Clinical Impression: Pain of gingiva Disposition: HOME / SELF CARE / HOMELESS Is pt being admited?: No Does the pt Need Aspirin: No Condition: Stable Instructions: Preventive Dental Care, Adult Additional Instructions: Take medication has prescribed Return to the dentist who did your dental extraction Return to the ED for any worsening symptom Prescriptions: Clindamycin [Clindamycin CAP] 600 mg PO BID 10 Days #20 capsule Acetaminophen/Codeine [Tylenol /Codeine # 3 tab] 1 tab PO Q6H PRN 3 Days #12 tab PRN Reason: Pain, Mild (1-3) Referrals: [facility] [Outside] - 3-5 Days Forms: Work/School Release Form(ED) Time of Disposition: 11:17
[2022-04-22 11:42] VITALS: BP 147/83
== END 2022-04-22 11:40 | disposition home or self-care (01) ==
LOC: ED 07:34
DX: K08.89 Other specified disorders of teeth and supporting structures (principal); K06.9 Disorder of gingiva and edentulous alveolar ridge, unspecified; Z88.0 Allergy status to penicillin; Z91.041 Radiographic dye allergy status; I10 Essential (primary) hypertension; J45.909 Unspecified asthma, uncomplicated; Z90.49 Acquired absence of other specified parts of digestive tract
CPT/HCPCS: 99282